=== PATIENT | male | born 1975 | race Caucasian/White ===

== ENCOUNTER → 2019-05-03 | Outpatient (CLI) | payer OTHER ==
[~2019-05-03] MED LIST: CYCL10TA2 PO; LISI10TA2 PO; SIMV20TA3 PO
--- NOTE | 2019-05-03 14:28 | KCIC ---
Examination: MRI left proximal tibia and fibula without contrast HISTORY: History of cyst lower leg COMPARISON: 01/08/2016 Technique: Multiplanar, multisequence MR imaging of the left tibia and fibula without contrast FINDINGS: The alignment of the tibia and fibula grossly appears unremarkable.There is a elongated multilocular cystic structure identified in the proximal extensor digitorum longus muscle extending from the proximal tibiofibular joint measuring 8.5 cm in CC dimension likely a ganglion cyst minimally increased in size. The peroneal nerve is deep to the ganglion cyst with minimal mass effect on the peroneal nerve. IMPRESSION: Minimal increase in size of the ganglion cyst in the extensor digitorum longus muscle extending from the proximal tibiofibular joint. Electronically signed by: Mikel Galvez MD (05/03/2019 2:26 PM) [id number]
== END | disposition home or self-care (01) ==
LOC: KCIC MRI 10:47
PROVIDERS: ATTEND Orthopaedic Surgery
DX: M67.462 Ganglion, left knee (principal)
CPT/HCPCS: 73718